=== PATIENT | male | born 1980 | race Two or more races ===

== ENCOUNTER 2016-09-04 18:35 | Emergency (ER) | payer SELFPAY ==
[2016-09-04 18:52] VITALS: BP 139/78; BMI 25.0
--- NOTE | 2016-09-04 19:04 | DR.ABDMALE ---
HPI - Time seen Time seen: 18:55 - PCP Primary Care Physician: BEATRIZ - HPI comment HPI Comment: EPIGASTRIC PAIN SINCE YESTERDAY. WAS GETTING BETTER BUT TONIGHT WORSE. NAUSEATED BUT NO VOMITING. - Complaint Chief Complaint Doctors Comments: EPIGASTRIC PAIN TIMES ONE DAY. Chief Complaint:: PT C/O ABD PAIN THAT STARTED YESTERDAY AND ITS BETTER TODAY AND DENIES ANY PROBLEMS WITH URINATING OR VOMITTING ... PT C/O HAVING ONE LOOSE BM .. PT C/O SHARP PAINS TO HIS ABD AND SOME BURNING.. Self Treatment fo Chief Complaint: ADVIL,,, AND SOME ABD MEDICATION.. - Reviewed Nurses Notes Review: Yes - Mode of arrival Mode of Arrival: Ambulatory - Timing Onset of Chief Complaint: 09/03/16 Came on: Suddenly - Duration Duration: Constant Duration: Days - Location Location: Epigastric - Severity Severity: Moderate - Quality Quality: Sharp - Context Onset: Suddenly History of: None - Modifying factors Worsening Factors: Nothing Improving Factors: Nothing - Associated signs and symptoms Associated Signs and Symptoms: Nausea PMH - PMH Past Medical History: No Past Surgical History: No - Family History History of Family Medical Conditions: Yes Family Medical History: Diabetes Mellitus, Hypertension - Social History Does patient currently use any type of tobacco product: Yes Have you used tobacco products in the last 12 months: Yes Type of Tobacco Use: Cigarettes How many years tobacco product used: 10 Does any household member use tobacco: No Alcohol Use: None Do you use any recreational Drugs:: No Lives With: Spouse Lives Where: Home - infectious screening In the last 2 months have you had wt loss of >10#?: NO Have you had fever, night sweats or hemotysis?: No Have you traveled outside the country in the last 6 months?: No Isolation: Standard ROS - Review of Systems Constitutional: No Symptoms Reported Eyes: No Symptoms Reported ENTM: No Symptoms Reported Respiratoy: No Symptoms Reported Cardiovascular: No Symptoms Reported Gastrointestinal/Abdominal: Abdominal Pain, Nausea Genitourinary: No Symptoms Reported Neurological: No Symptoms Reported Musculoskeletal: No Symptoms Reported Integumentary: No Symptoms Reported Hematologic/Lymphatic: No Symptoms Reported Endocrine: No Symptoms Reported All Other Systems: Reviewed and Negative PE - Vital Signs Vital Signs: Temp Pulse Resp BP Pulse Ox 09/04/16 18:37 97.7 F 62 20 139/78 100 - General Limitations: No Limitations General Appearance: Alert - Head Head Exam: Normal Inspection - Eyes Eye exam: Normal Appearance - ENT ENT Exam: Normal External Ear Exam - Neck Neck Exam: Normal Inspection - Chest Chest Inspection: Symmetric Chest Wall Rise - Respiratory Respiratory Exam: Normal Lung Sounds Bilat Respiratory Exam: Bilateral Clear to Auscultation - Cardiovascular Cardiovascular Exam: Regular Rate, Normal Rhythm, Normal Heart Sounds - Abdominal Exam Abdominal Exam: Normal Bowel Sounds, Soft, Tenderness Abdominal Tenderness: Epigastrium - Rectal Rectal Exam: Deferred - Back Back Exam: Normal Inspection - Extremeties Extremities Exam: Normal Inspection - Exam: Male: Deferred - Neurologic Neurological Exam: Alert, Oriented X3 - Psychiatric Psychiatric Exam: Anxious - Skin Skin Exam: Normal Color MDM - Differential Diagnosis Differential Diagnosis: Cholcystitis, Esophagitis, Gastritus/PUD, Pancreatitis, Urinary tract infection, Urolithiasis Course - Treatment Treatment: SEE ORDERS - Education/Counseling Education/Counseling: Patient, Education Educated On: Treatment, Diagnosis, Needs for Follow Up ROR - Labs Reviewed Laboratory Results Reviewed?: Yes Result Diagrams: 09/04/16 19:10 09/04/16 19:10 Laboratory: WBC 9.4 X10^3/uL (3.6-10.0) 09/04/16 19:10 RBC 5.66 X10^6/uL (4.7-6.0) 09/04/16 19:10 Hgb 16.8 g/dL (13.5-18.0) 09/04/16 19:10 Hct 49.9 % (42.0-54.0) 09/04/16 19:10 MCV 88.3 fL (80.0-100.0) 09/04/16 19:10 MCH 29.7 pg (27.0-34.0) 09/04/16 19:10 MCHC 33.7 g/dL (33.0-35.0) 09/04/16 19:10 RDW 12.9 % (11.6-16.5) 09/04/16 19:10 Plt Count 137 X10^3/uL (150.0-450.0) L 09/04/16 19:10 MPV 10.5 fL (7.4-11.0) 09/04/16 19:10 Neut % 78.7 % (42.0-75.0) H 09/04/16 19:10 Lymph % 13.1 % (21.0-51.0) L 09/04/16 19:10 [place] % 5.9 % (0.0-13.0) 09/04/16 19:10 Eos % 1.8 % (0.9-2.9) 09/04/16 19:10 Baso % 0.5 % (0.2-1.0) 09/04/16 19:10 Neut # 7.4 x10^3/uL (2.2-4.8) H 09/04/16 19:10 Lymph # 1.2 X10^3/uL (1.3-2.9) L 09/04/16 19:10 [place] # 0.6 x10^3/uL (0.3-0.8) 09/04/16 19:10 Eos # 0.2 x10^3/uL (0.0-0.2) 09/04/16 19:10 Baso # 0.1 X10^3/uL (0.0-0.1) 09/04/16 19:10 Absolute Nucleated RBC 0.1 /100WBC 09/04/16 19:10 Sodium 141 mmol/L (136-145) 09/04/16 19:10 Corrected Sodium TNP 09/04/16 19:10 Potassium 3.7 mmol/L (3.5-5.1) 09/04/16 19:10 Chloride 103 mmol/L (98-107) 09/04/16 19:10 Carbon Dioxide 29.5 mmol/L (21-32) 09/04/16 19:10 BUN 9 mg/dL (7-18) 09/04/16 19:10 Creatinine 1.18 mg/dL (0.70-1.30) 09/04/16 19:10 Est GFR (MDRD) Af Amer > 60 (>60) 09/04/16 19:10 Est GFR (MDRD) Non-Af > 60 (>60) 09/04/16 19:10 Glucose 105 mg/dL (65-99) H 09/04/16 19:10 Calcium 8.6 mg/dL (8.5-10.1) 09/04/16 19:10 Corrected Calcium TNP 09/04/16 19:10 Total Bilirubin 0.40 mg/dL (0.2-1.0) 09/04/16 19:10 AST 25 Units/L (15-37) 09/04/16 19:10 ALT 38 Units/L (12-78) 09/04/16 19:10 Alkaline Phosphatase 83 Units/L (46-116) 09/04/16 19:10 Total Protein 8.0 g/dL (6.4-8.2) 09/04/16 19:10 Albumin 4.3 g/dL (3.4-5.0) 09/04/16 19:10 Globulin 3.7 g/dL (2.5-4.5) 09/04/16 19:10 Albumin/Globulin Ratio 1.2 Ratio (1.1-2.1) 09/04/16 19:10 Amylase 63 Units/L (25-115) 09/04/16 19:10 Lipase 117 Units/L (73-393) 09/04/16 19:10 Specimen Type Clean catch urine 09/04/16 19:12 Urine Color Yellow (YELLOW) 09/04/16 19:12 Urine Appearance Clear (CLEAR) 09/04/16 19:12 Urine pH 7.0 (5.0 - 8.0) 09/04/16 19:12 Ur Specific [place] 1.010 (1.000-1.030) 09/04/16 19:12 Urine Protein Negative (NEGATIVE) 09/04/16 19:12 Urine Glucose (UA) Negative (NEGATIVE) 09/04/16 19:12 Urine Ketones Negative (NEGATIVE) 09/04/16 19:12 Urine Occult Blood 1+ (NEGATIVE) 09/04/16 19:12 Urine Nitrite Negative (NEGATIVE) 09/04/16 19:12 Urine Bilirubin Negative (NEGATIVE) 09/04/16 19:12 Urine Urobilinogen 1+ (NORMAL) 09/04/16 19:12 Ur Leukocyte Esterase Negative (NEGATIVE) 09/04/16 19:12 Urine RBC Rare /HPF (NEGATIVE) 09/04/16 19:12 Urine WBC None seen /HPF (NEGATIVE) 09/04/16 19:12 Ur Squamous Epith Cells Rare /HPF (NEGATIVE) 09/04/16 19:12 Urine Bacteria Negative /HPF (NEGATIVE) 09/04/16 19:12 Ur Culture Indicated? No/not indicated 09/04/16 19:12 H. pylori IgG Antibody Positive (NEGATIVE) A 09/04/16 19:10 - XRAY XRAY Interpreted by: Radiologist XRAY Findings: REPORT DISCUSS WITH PATIENT. - Diagnosis Discharge Problem: Helicobacter pylori antibody positive Gastritis Qualifiers: Gastritis type: unspecified gastritis Chronicity: acute Gastritis bleeding: without bleeding Qualified Code(s): K29.00 - Acute gastritis without bleeding - Discharge Plan Disposition: HOME, SELF-CARE Condition: Stable Prescriptions: Gi Cocktail [LEVSIN/Maalox/Lidoc Visc (GI COCKTAIL) *] 30 ml PO TID PRN #60 ml PRN Reason: Ranitidine HCl [ZANTAC TAB 150 MG *] 150 mg PO BID #60 tab - Follow ups/Referrals Follow ups/Referrals: [facility],None [Primary Care Provider] - 2 days ROGER FINNEY [STAFF PHYSICIAN] - 3 days - Instructions Instructions: Abdominal Pain, Adult, [id number], Helicobacter Pylori Antibodies Test, Gastritis, Adult, [id number] Additional Instructions: RETURN TO ED IF WORSE. HAVE PCP TO TRE[facility] PYLORI IN THE OFFICE.
[2016-09-04] MEDS ORDERED: LEVSIN/MAALOX/LIDOC VISC PO ONE (19:07)
[2016-09-04] MEDS ORDERED: PEPCID 20 MG IV PREMIX* 20 MG/50 ML BAG IV ONE ×2 (19:07→19:18)
[2016-09-04] MEDS ORDERED: LEVSIN/MAALOX/LIDOC VISC ONE (19:18)
[2016-09-04] MEDS ORDERED: NS 100 ML IV 100 ML IV ONE (19:18)
[2016-09-04 19:22] LABS: BASOPHILS # (AUTO) 0.1 X10^3/uL (0.0-0.1); BASOPHILS % (AUTO) 0.5 % (0.2-1.0); EOSINOPHILS # (AUTO) 0.2 x10^3/uL (0.0-0.2); EOSINOPHILS % (AUTO) 1.8 % (0.9-2.9); HEMATOCRIT 49.9 % (42.0-54.0); HEMOGLOBIN 16.8 g/dL (13.5-18.0); LYMPHOCYTES # (AUTO) 1.2 X10^3/uL (1.3-2.9); LYMPHOCYTES % (AUTO) 13.1 % (21.0-51.0); MEAN CORPUSCULAR HEMOGLOBIN 29.7 pg (27.0-34.0); MEAN CORPUSCULAR HGB CONC 33.7 g/dL (33.0-35.0); MEAN CORPUSCULAR VOLUME 88.3 fL (80.0-100.0); MEAN PLATELET VOLUME 10.5 fL (7.4-11.0); MONOCYTES # (AUTO) 0.6 x10^3/uL (0.3-0.8); MONOCYTES % (AUTO) 5.9 % (0.0-13.0); NEUTROPHILS # (AUTO) 7.4 x10^3/uL (2.2-4.8); NEUTROPHILS % (AUTO) 78.7 % (42.0-75.0); PLATELET COUNT 137 X10^3/uL (150.0-450.0); RED BLOOD COUNT 5.66 X10^6/uL (4.7-6.0); RED CELL DISTRIBUTION WIDTH 12.9 % (11.6-16.5); WHITE BLOOD COUNT 9.4 X10^3/uL (3.6-10.0)
[2016-09-04 19:29] LABS: ALANINE AMINOTRANSFERASE 38 Units/L (12-78); ALBUMIN 4.3 g/dL (3.4-5.0); ALKALINE PHOSPHATASE 83 Units/L (46-116); AMYLASE 63 Units/L (25-115); ASPARTATE AMINO TRANSFERASE 25 Units/L (15-37); BLOOD UREA NITROGEN 9 mg/dL (7-18); CALCIUM 8.6 mg/dL (8.5-10.1); CARBON DIOXIDE 29.5 mmol/L (21-32); CHLORIDE 103 mmol/L (98-107); CREATININE 1.18 mg/dL (0.70-1.30); GLUCOSE 105 mg/dL (65-99); LIPASE 117 Units/L (73-393); SODIUM 141 mmol/L (136-145); eGFR BLACK RACES > 60 (>60); eGFR NON BLACK RACES > 60 (>60)
[2016-09-04 19:30] LABS: BILIRUBIN,URINE NEGATIVE (NEGATIVE); BLOOD/HEMOGLOBIN,URINE 1+ (NEGATIVE); GLUCOSE, URINE NEGATIVE (NEGATIVE); KETONES,URINE NEGATIVE (NEGATIVE); LEUKOCYTE ESTERASE ,URINE NEGATIVE (NEGATIVE); NITRITES,URINE NEGATIVE (NEGATIVE); PROTEIN,URINE NEGATIVE (NEGATIVE); UROBILINOGEN,URINE 1+ (NORMAL)
[2016-09-04 19:43] LABS: APPEARANCE,URINE CLEAR (CLEAR); BACTERIA,URINE NEGATIVE /HPF (NEGATIVE); COLOR,URINE YELLOW (YELLOW); RBC,URINE RARE /HPF (NEGATIVE); SQUAMOUS EPITHELIAL CELL,UR RARE /HPF (NEGATIVE)
--- NOTE | 2016-09-04 20:44 | RAD ---
HISTORY: Mid abdominal pain Study: Acute abdominal series Comparison: None Findings: The trachea is midline. The cardiac silhouette is unremarkable. The lungs are clear without focal mass or consolidation. There is no effusion or pneumothorax. The bony thorax is grossly unremarkab le. Flat plate and upright evaluation of the abdomen demonstrates a nonspecific bowel gas pattern withou t pneumoperitoneum. There are scattered air-fluid levels throughout the small bowel and colon with s everal loops of mildly dilated small bowel but without findings of high-grade obstruction. Findings could reflect gastroenteritis. No pathological soft tissue mass or calcification can be observed. T he bony structures are grossly intact. IMPRESSION: 1. No acute cardiopulmonary disease. 2. Nonspecific bowel gas pattern which could reflect gastroenteritis. Reported By:
== END 2016-09-04 20:49 | disposition home or self-care (01) ==
LOC: ER 18:35
DX: K29.00 Acute gastritis without bleeding (principal); B96.81 Helicobacter pylori [H. pylori] as the cause of diseases classified elsewhere
CPT/HCPCS: 36415; 74022; 80053; 81001; 82150; 83690; 85025; 86677; 96365; 96374; 99283; A4222; S0028